=== PATIENT | male | born 1940 | race Caucasian/White ===

== ENCOUNTER → 2017-07-30 | Outpatient (CLI) | payer MEDICARE | END | disposition home or self-care (01) | LOC: CFH 13:23 | PROVIDERS: ATTEND Internal Medicine Cardiovascular Disease | DX: I11.9 Hypertensive heart disease without heart failure (principal); I51.7 Cardiomegaly; R06.02 Shortness of breath | CPT/HCPCS: 93306 ==

== ENCOUNTER 2020-12-26 14:24 | Emergency (ER) | payer MEDICARE ==
[~2020-12-26] VITALS: Ht 175.3 cm; Wt 83.7 kg
[~2020-12-26 14:24] MED LIST: AMLO-150 PO; FLUO10TA PO; LISI-170 PO; SIMV40TA20 PO
--- NOTE | 2020-12-26 15:02 | NUR ---
PT BIB VIA POV FROM . PER PT HE FELL WHILE ICE SKATING AROUND 1215, HIT RIGHT SIDE OF HEAD, POSITIVE LOC, UNSURE HOW LONG HE WAS OUT. PT STATES HE WAS SEEN AT AND REFERRED TO ED, EPISODE OF EMESIS ON THE WAY HERE. PT DENIES TAKING BLOOD THINNERS. PT STATES NO OTHER PAIN BESIDES HIS R SIDE OF HEAD BEING SORE, PT NOTED TO HAVE SWELLING AND ABRASION TO RIGHT FOREHEAD. PT RESTING IN [facility], MONITORING IN PLACE, EKG DONE UPON ARRIVAL, MARIA E AT THIS TIME, AT BEDSIDE, WCTM.
[2020-12-26] MEDS ORDERED: IBUPROFEN 600 MG TABLET ONE (16:17)
[2020-12-26 16:30] VITALS: BP 141/74
[2020-12-26] MEDS ORDERED: IBUPROFEN 600 MG TABLET PO ONE (16:30)
== END 2020-12-26 16:59 | disposition home or self-care (01) ==
LOC: ED 14:54
DX: S06.0X1A Concussion with loss of consciousness of 30 minutes or less, initial encounter (principal); R94.31 Abnormal electrocardiogram [ECG] [EKG]; W18.30XA Fall on same level, unspecified, initial encounter; Y93.89 Activity, other specified; Y92.009 Unspecified place in unspecified non-institutional (private) residence as the place of occurrence of the external cause; Y99.8 Other external cause status
CPT/HCPCS: 70450; 93005; 99284

== ENCOUNTER 2021-03-05 18:05 | Emergency (ER) | payer MEDICARE ==
[~2021-03-05] VITALS: Ht 177.8 cm; Wt 84.2 kg
[2021-03-05 19:10] LABS: BASOPHILS % (AUTO) 1 % (0-1); EOSINOPHILS % (AUTO) 5 % (1-7); LYMPHOCYTES % (AUTO) 16 % (22-44); MEAN CORPUSCULAR HEMOGLOBIN 32.5 pg (27.5-34.5); MEAN CORPUSCULAR HGB CONC 34.7 g/dL (33.2-36.2); MEAN PLATELET VOLUME 6.1 fL (7.4-10.4); MONOCYTES % (AUTO) 9 % (2-9); NEUTROPHILS % (AUTO) 70 % (42-75); PLATELET COUNT 447 x10^3/uL (130-400); RED BLOOD COUNT 4.85 x10^6/uL (4.38-5.82); RED CELL DISTRIBUTION WIDTH 13.6 % (9.4-14.8)
[2021-03-05 19:16] LABS: ALBUMIN 1.7 g/dL (3.4-5.0); ANION GAP 8 mmol/L (5-15); CALCIUM 8.4 mg/dL (8.5-10.1); CHLORIDE 101 mmol/L (98-107)
[2021-03-05 19:20] LABS: ALANINE AMINOTRANSFERASE 116 U/L (12-78); ALKALINE PHOSPHATASE 140 U/L (45-117); BILIRUBIN,TOTAL 0.7 mg/dL (0.2-1.0); CREATININE 0.81 mg/dL (0.7-1.3); TOTAL PROTEIN 7.5 g/dL (6.4-8.2)
--- NOTE | 2021-03-05 21:01 | NUR ---
PT TO ROOM 18 AT THIS TIME. CARE ASSUMED. PT REPORTS FELLING "SICK" FOR 2 WEEKS NOW. PT REPORTS FEELING GENERAL FATIGUE AND WEAKNESS, SOB, FEVER/CHILLS, SHAKING, AND NIGHT SWEATS, AND INSOMNIA. PT HAS BEEN TAKING ANTIBIOTICS AND USES OXYGEN AT HOME. PT CONNECTED TO VITAL SIGN MACHINE.
[2021-03-05] MEDS ORDERED: LIDOCAINE 2%,20 ML JEL.PF.APP MM ONE (22:00)
--- NOTE | 2021-03-05 22:01 | NUR ---
URINE OBTAINED AND SENT TO LAB AT THIS TIME.
[2021-03-05 22:09] LABS: MICROSCOPIC INDICATED
--- NOTE | 2021-03-05 23:49 | NUR ---
PT TO ULTRASOUND
[2021-03-05] MEDS ORDERED: OMNIPAQUE 350 MG/ML, 100ML BOTTLE ONE (23:56)
[2021-03-06 00:11] VITALS: BP 99/63
== END 2021-03-06 01:09 | disposition home or self-care (01) ==
LOC: ED 21:21
DX: D72.829 Elevated white blood cell count, unspecified (principal); I70.0 Atherosclerosis of aorta; I70.8 Atherosclerosis of other arteries; I25.10 Atherosclerotic heart disease of native coronary artery without angina pectoris; R94.5 Abnormal results of liver function studies; R93.89 Abnormal findings on diagnostic imaging of other specified body structures; Z20.822 Contact with and (suspected) exposure to COVID-19
CPT/HCPCS: 71045; 71260; 74177; 80053; 81001; 83605; 84145; 85025; 87040; 87086; 93005; 99285; Q9967; U0003; U0005

== ENCOUNTER 2021-03-17 11:27 | Emergency (ER) | payer MEDICARE ==
[~2021-03-17] VITALS: Ht 177.8 cm; Wt 81.3 kg
--- NOTE | 2021-03-17 12:12 | NUR ---
actuarial intern note: ekg taken in triage, reviewed by edmd
[2021-03-17 12:29] LABS: BASOPHILS % (AUTO) 1 % (0-1); EOSINOPHILS % (AUTO) 5 % (1-7); LYMPHOCYTES % (AUTO) 16 % (22-44); MEAN CORPUSCULAR HEMOGLOBIN 31.8 pg (27.5-34.5); MEAN CORPUSCULAR HGB CONC 34.1 g/dL (33.2-36.2); MEAN PLATELET VOLUME 5.8 fL (7.4-10.4); MONOCYTES % (AUTO) 9 % (2-9); NEUTROPHILS % (AUTO) 70 % (42-75); PLATELET COUNT 539 x10^3/uL (130-400); RED CELL DISTRIBUTION WIDTH 13.6 % (9.4-14.8)
[2021-03-17 12:37] LABS: CHLORIDE 102 mmol/L (98-107)
[2021-03-17 12:38] LABS: ALBUMIN 1.9 g/dL (3.4-5.0); ANION GAP 8 mmol/L (5-15); CALCIUM 8.7 mg/dL (8.5-10.1)
[2021-03-17 12:43] LABS: ALANINE AMINOTRANSFERASE 103 U/L (12-78); ALKALINE PHOSPHATASE 156 U/L (45-117); BILIRUBIN,TOTAL 0.7 mg/dL (0.2-1.0); TOTAL PROTEIN 7.8 g/dL (6.4-8.2); TROPONIN I < 0.015 ng/mL (0.000-0.045)
--- NOTE | 2021-03-17 14:16 | NUR ---
PT AMBULATED TO BR WITHOUT DIFFICULTY; INSTRUCTED ON CLEAN CATCH URINE SAMPLE.
--- NOTE | 2021-03-17 14:20 | NUR ---
PA STUDENT AT BS.
--- NOTE | 2021-03-17 14:21 | NUR ---
PT REPORTING MULTIPLE SYMPTOMS, INCLUDING HEADACHE, FATIGUE, NIGHT SWEATS, DECREASED APPETITE. VACCINATED FOR COVID & HAS HAD SEVERAL NEGATIVE COVID TESTS. Addendum: 03/17/21 at 1431 by JEN REPORTS HE AND HIS WERE BOTH "SICK" THIS SUMMER, AND HE HAD TO WEAR OXYGEN.
--- NOTE | 2021-03-17 14:23 | NUR ---
PT UNABLE TO VOID FOR UA. WATER PROVIDED.
--- NOTE | 2021-03-17 14:56 | NUR ---
SPO2 WAS 89-91% ON RA. PLACED ON 1L O2 NC. Addendum: 03/17/21 at 1516 by HBENSON SPO2 WAS 89-91% ON RA. PLACED ON 2L O2 NC.
--- NOTE | 2021-03-17 15:13 | NUR ---
Report from Shae CALIX
--- NOTE | 2021-03-17 15:15 | NUR ---
PT WAS UNABLE TO VOID AGAIN. WILL DO STRAIGHT CATH PER ERP. REPORTED TO IVAN CALIX.
--- NOTE | 2021-03-17 15:59 | NUR ---
PT REFUSING STRAIGHT CATH, STATES HE CAN PROVIDE UA IF ABLE TO WALK. PT UP TO WALK WITH , ABLE TO URINATE. UA WALKED TO LAB.
[2021-03-17 16:45] LABS: MICROSCOPIC AUTO
[2021-03-17] MEDS ORDERED: CEFTRIAXONE 1,000 MG ONE (17:42)
[2021-03-17] MEDS ORDERED: LIDOCAINE-MPF 2%, 2ML ONE (17:43)
[2021-03-17] MEDS ORDERED: LIDOCAINE-MPF 1%, 2ML ONE (17:44)
[2021-03-17 17:54] VITALS: BP 117/67
--- NOTE | 2021-03-17 17:59 | NUR ---
Patient and spouse given discharge instructions and they have confirmed that they understand the instructions. Patient ambulatory with steady gait. NAD, all questions answered appropriately, denies additional needs at this time. No personal belongings left in room after discharge.
[2021-03-17] MEDS ORDERED: CEFTRIAXONE 1,000 MG IM ONE (18:00)
== END 2021-03-17 18:00 | disposition home or self-care (01) ==
LOC: ED 16:13
DX: R53.1 Weakness (principal); Z20.822 Contact with and (suspected) exposure to COVID-19; G89.29 Other chronic pain; R51.9 Headache, unspecified; R53.83 Other fatigue; R94.31 Abnormal electrocardiogram [ECG] [EKG]; Z88.0 Allergy status to penicillin; I10 Essential (primary) hypertension; K21.9 Gastro-esophageal reflux disease without esophagitis; E78.5 Hyperlipidemia, unspecified
CPT/HCPCS: 36415; 70450; 71045; 80053; 81001; 83605; 84484; 85025; 87040; 87086; 93005; 96372; 99285; J0696; U0003; U0005